=== PATIENT | male | born 1985 | race Two or more races ===

== ENCOUNTER 2018-12-23 19:22 | Emergency (ER) | payer SELFPAY ==
[~2018-12-23] VITALS: Ht 170.2 cm; Wt 70.8 kg
[2018-12-23] MEDS ORDERED: NKM (19:41)
--- NOTE | 2018-12-23 19:44 | NUR ---
ED Nurse Note: Patient has complaints of cough x 1 week 2/10 pain in the left chest area. Patient has h/o of childhood asthma
[2018-12-23 19:47] VITALS: BP 116/79
[2018-12-23] MEDS ORDERED: ALPRAZOLAM0.25 MG ORAL (20:02)
[2018-12-23] MEDS ORDERED: PROMETHAZINE-D118 ML ORAL (20:02)
[2018-12-23] MEDS ORDERED: ALBUTEROL SULF8.5 GM INH (20:02)
[2018-12-23 20:11] VITALS: BP 116/79
--- NOTE | 2018-12-23 20:11 | NUR ---
ED Nurse Note: Patient discharged in stable condition. no s/s of acute distress. Patient is ambulatory with steady gait. patient discharged to home via personal vehicle.
--- NOTE | 2018-12-24 15:31 | Emergency Room Report ---
History of Present Illness General Chief Complaint: Upper Respiratory Illness Source: Patient Present Illness HPI 33-year-old male presents ED for evaluation. Complaining cough and shortness of breath for the last 6 days. Cough is dry. Denies fevers or chills. Denies chest pain. Denies sore throat or earache. Denies sick contacts or recent travel. Notes history of asthma. Denies smoking or drug use. No other aggravating relieving factors. Denies any other associated symptoms Allergies: Uncoded Allergies: CATS (Allergy, Unknown, 12/23/18) Patient History Past Medical History: asthma Past Surgical History: none Pertinent Family History: none Social History: Denies: smoking, alcohol use, drug use Immunizations: UTD Reviewed Nursing Documentation: PMH: Agreed; PSxH: Agreed Nursing Documentation-PMH Hx Asthma: Yes Hx Gastrointestinal Problems: Yes - appendectomy Review of Systems All Other Systems: negative except mentioned in HPI Physical Exam Vital Signs Date Time Temp Pulse Resp B/P (MAP) Pulse Ox O2 Delivery O2 Flow Rate FiO2 12/23/18 19:33 98.2 87 16 116/79 99 Room Air Sp02 EP Interpretation: reviewed, normal General Appearance: no apparent distress, alert, GCS 15, non-toxic Head: normocephalic, atraumatic Eyes: bilateral eye normal inspection, bilateral eye PERRL ENT: hearing grossly normal, normal pharynx, no angioedema, normal voice Neck: full range of motion, supple/symm/no masses Respiratory: chest non-tender, lungs clear, normal breath sounds, speaking full sentences Cardiovascular #1: regular rate, rhythm, no edema Cardiovascular #2: 2+ carotid (R), 2+ carotid (L), 2+ radial (R), 2+ radial (L) , 2+ dorsalis pedis (R), 2+ dorsalis pedis (L) Gastrointestinal: normal bowel sounds, non tender, soft, non-distended, no guarding, no rebound Rectal: deferred Genitourinary: normal inspection, no CVA tenderness Musculoskeletal: back normal, gait/station normal, normal range of motion, non- tender Neurologic: alert, oriented x3, responsive, motor strength/tone normal, sensory intact, speech normal Psychiatric: judgement/insight normal, memory normal, mood/affect normal, no suicidal/homicidal ideation Reflexes: 3+ bicep (R), 3+ bicep (L), 3+ tricep (R), 3+ tricep (L), 3+ knee (R) , 3+ knee (L) Skin: normal color, no rash, warm/dry, well hydrated Lymphatic: no adenopathy Medical Decision Making Diagnostic Impression: Primary Impression: Bronchitis Additional Impression: Anxiety ER Course Hospital Course 33 yo M presents with cough, SOB Differential diagnoses include: URI, pharyngitis, otitis media, asthma Clinical course Patient placed on stretcher. After initial history, physical exam reveals a male in no acute distress. Bilateral TM unremarkable. No pharyngeal erythema. No tonsillar exudates. No lymphadenopathy. lungs clear. abdomen soft. Consideration for bronchitis. No active wheezing at this time. I offered breathing treatment but patient declined. We'll discharge with inhaler, cough medication. And also states he's been feeling incredibly anxious lately. History of anxiety does not take medication. States he's been drinking recently to help with his anxiety. I offered short course of low-dose Xanax and patient agreed. we'll also provide referrals Safe for discharge close outpatient follow-up Diagnosis - bronchitis, anxiety Stable and discharged home with Rx albuterol, proemthazine, xanax. Instructed to followup with PMD. Return to ED if symptoms recur or worsen Last Vital Signs Date Time Temp Pulse Resp B/P (MAP) Pulse Ox O2 Delivery O2 Flow Rate FiO2 12/23/18 20:11 98.2 67 16 116/79 99 Room Air Status: improved Disposition: HOME, SELF-CARE Condition: Stable Scripts Alprazolam* (XANAX*) 0.25 Mg Tablet 0.25 MG ORAL TID PRN for For Anxiety, #10 TAB Prov: Simone Winslow MD 12/23/18 D-Methorphan Hb/Prometh Hcl* (PROMETHAZINE-DM SYRUP*) 118 Ml Syrup 5 ML ORAL Q6H PRN for For Cough, #118 ML 0 Refills Prov: Simone Winslow MD 12/23/18 Albuterol Sulfate* (ALBUTEROL SULFATE MDI*) 8.5 Gm Hfa.aer.ad 2 PUFF INH Q6H, #1 EA 0 Refills Prov: Simone Winslow MD 12/23/18 Referrals: NOT CHOSEN IPA/,REFERRING (PCP) [facility] [place] [facility] + [facility] Psych ER - Peds ER - [facility] Patient Instructions: Panic Attacks, [id number], Acute Bronchitis, Easy-to- Read Simone Winslow MD Dec 24, 2018 15:30
== END 2018-12-23 20:20 | disposition home or self-care (01) ==
LOC: EMR 20:15
DX: J20.9 Acute bronchitis, unspecified (principal); F41.9 Anxiety disorder, unspecified; Z91.048 Other nonmedicinal substance allergy status; Z90.89 Acquired absence of other organs
CPT/HCPCS: 99283